=== PATIENT | female | born 2000 | race Caucasian/White ===

== ENCOUNTER 2025-05-22 11:49 | Outpatient (CLI) | payer OTHER ==
[2025-05-22 14:02] LABS: BHCG - Serum Negative (NEGATIVE); Pregs Control Background? CLEAR/WHITE (CLR/WHITE); Pregs Control Bar Appear? YES (CONTROL BAR)
== END 2025-05-22 11:50 | disposition home or self-care (01) ==
LOC: CSHLAB 11:49
PROVIDERS: ATTEND Surgery
DX: Z01.812 Encounter for preprocedural laboratory examination (principal); R59.0 Localized enlarged lymph nodes
CPT/HCPCS: 84703

== ENCOUNTER 2025-05-23 11:29 | Day surgery (SDC) | payer OTHER ==
[2025-05-22 12:04] VITALS: BMI 24.2
[2025-05-23] MEDS ORDERED: Bupivacaine HCl 0.5%/Epinephrine 1:200,000/PF 30 ml Vial ONE (13:14)
[2025-05-23] MEDS ORDERED: Bupivacaine/Epinephrine 0.25% 30 ML VIAL ONE (13:14)
[2025-05-23] MEDS ORDERED: Sevoflurane 250 ML INH ANEST BOTTLE ONE (13:15)
[2025-05-23] MEDS ORDERED: PROPOFOL 20 ML ONE (13:20)
[2025-05-23] MEDS ORDERED: Lidocaine 1% PF 5 ML VIAL ONE (13:22)
[2025-05-23] MEDS ORDERED: Ondansetron PF 4 MG/2 ML Vial ONE (13:22)
[2025-05-23] MEDS ORDERED: CEFAZOLIN 2 GM VIAL ONE (13:45)
== END 2025-05-23 16:10 | disposition home or self-care (01) ==
LOC: CSHSDC 11:29
PROVIDERS: ATTEND Surgery
PROC: 07B20ZZ Excision of Left Neck Lymphatic, Open Approach (ICD-10-PCS; principal; 2025-05-23)
DX: D36.0 Benign neoplasm of lymph nodes (principal)
CPT/HCPCS: 88184; 88307; 88341; 88342; J1100; J2250; J2405; J2704; J3010